=== PATIENT | male | born 1990 | race Caucasian/White ===

== ENCOUNTER 2023-05-06 08:52 | Inpatient (IN) | payer SELFPAY ==
[~2023-05-06] VITALS: Ht 177.8 cm; Wt 103.9 kg
[2023-05-06] MEDS ORDERED: LORAZEPAM 2MG/ML CPJ IV ONE (09:00)
[2023-05-06] MEDS ORDERED: LEVETIRACETAM 1000MG PREMIX 100 ML IV ONE (09:00)
[2023-05-06] MEDS ORDERED: SODIUM CHLORIDE 0.9% 1,000 ML IV ONE (09:00)
[2023-05-06] MEDS ORDERED: ONDANSETRON HCL 4MG/2ML INJ IV ONE (10:30)
[2023-05-06 11:39] LABS: HEMATOCRIT. 38.3 % (42.0-52.0); HEMOGLOBIN. 12.7 g/dL (14.0-18.0); MEAN CORPUSCULAR HEMOGLOBIN 28.9 pg (28.0-32.0); MEAN CORPUSCULAR HGB CONC 33.1 g/dL (31.0-37.0); MEAN CORPUSCULAR VOLUME 87.4 fL (80.0-94.0); MEAN PLATELET VOLUME 8.5 fl (7.4-10.4); PLATELET 173 x1000/uL (130-400); RED BLOOD CELL COUNT 4.38 mill/uL (4.7-6.1); RED CELL DISTRIBUTION WIDTH 14.2 % (11.6-14.6); WHITE BLOOD COUNT 6.3 x1000/uL (4.5-11.0)
[2023-05-06 11:40] LABS: DIFFERENTIAL COMMENT 1
[2023-05-06 12:06] LABS: PLATELET ESTIMATE NORMAL
[2023-05-06] MEDS ORDERED: ONDANSETRON HCL 4MG/2ML INJ IV PRN (12:45)
[2023-05-06] MEDS ORDERED: DEXTROSE 50% WATER 50ML SYRINGE IV PRN (12:45)
[2023-05-06] MEDS ORDERED: MAGNESIUM/ALUMINUM HYDROXIDE/SIMETHICONE 30ML UDC PO PRN (12:45)
[2023-05-06] MEDS ORDERED: GUAIFENESIN 200MG/10ML SUGAR FREE UDC PO PRN (12:45)
[2023-05-06] MEDS ORDERED: IPRATROPIUM/ALBUTEROL 0.5-3(2.5)MG/3ML NEB HHN PRN (12:45)
[2023-05-06] MEDS ORDERED: CLONIDINE 0.1MG TABLET PO PRN (12:45)
[2023-05-06] MEDS ORDERED: LORAZEPAM 0.5MG TABLET PO PRN (12:45)
[2023-05-06] MEDS ORDERED: DOCUSATE SODIUM 100MG CAPSULE PO PRN (12:45)
[2023-05-06 13:55] LABS: CHLORIDE 105 mEq/L (98-107); INDEX HEMOLYSI 1 (1-3); INDEX ICTERIC 1 (1-4); INDEX LIPEMIC 1 (1-3); POTASSIUM 3.7 mEq/L (3.5-5.1); SODIUM 136 mEq/L (136-145)
[2023-05-06 14:45] LABS: ALANINE AMINOTRANSFERASE 29 IU/L (13-61); ALBUMIN 3.7 g/dL (3.4-5.0); ASPARTATE AMINOTRANSFERASE 41 IU/L (15-37); BILIRUBIN TOTAL 0.3 mg/dL (0.1-1.0); CARBON DIOXIDE 23 mEq/L (21-32); ETHANOL BLOOD < 10 mg/dL (-10); GLUCOSE 114 mg/dL (70-105); PROTEIN TOTAL 6.8 g/dL (6.0-8.3); UREA NITROGEN BLOOD 17 mg/dL (7-21)
[2023-05-06] MEDS ORDERED: LORAZEPAM 1MG TABLET PO PRN (16:45)
[2023-05-06] MEDS: BLOOD SUGAR DIAGNOSTIC STRIP TEST SCH ×2 (17:00→20:52)
[2023-05-06] MEDS: INSULIN LISPRO 100 UNITS/ML SUBCUT SCH ×2 (18:10→21:00)
[2023-05-06] MEDS: ACETAMINOPHEN 325MG TABLET PO PRN (18:13)
[2023-05-06 18:27] LABS: TROPONIN I HIGH SENSITIVITY 241 ng/L (<78)
[2023-05-06 18:46] VITALS: BP 127/66; PULSE 53; RESP 18; TEMP 99.1
[2023-05-06] MEDS: ENOXAPARIN 30MG/0.3ML SYR SUBCUT SCH (18:53)
[2023-05-06] MEDS: DEXT 5%/0.9% NACL 1,000 ML IV SCH ×2 (19:01→23:58)
[2023-05-06 20:00] VITALS: BP 106/59; PULSE 55; RESP 20; TEMP 98.4
[2023-05-06 21:00] VITALS: BP 106/59; PULSE 55; RESP 18; TEMP 98.4
[2023-05-06] MEDS ORDERED: LEVETIRACETAM 500MG PREMIX 100 ML IV SCH ×2 (21:00→21:20)
[2023-05-06 22:00] VITALS: RESP 18
[2023-05-07] VITALS (9 sets, daily range): BP systolic 122–140; BP diastolic 71–80; PULSE 48–96; RESP 14–20; TEMP 98.2–100.6
[2023-05-07] MEDS: ENOXAPARIN 30MG/0.3ML SYR SUBCUT SCH ×2 (06:17→18:12)
[2023-05-07] MEDS: BLOOD SUGAR DIAGNOSTIC STRIP TEST SCH (06:42)
[2023-05-07 06:56] LABS: BASOPHILS % 0.2 % (0.0-2.0); HEMATOCRIT. 37.9 % (42.0-52.0); LYMPHOCYTES % 20.3 % (20.0-50.0); MEAN CORPUSCULAR HEMOGLOBIN 29.6 pg (28.0-32.0); MEAN CORPUSCULAR HGB CONC 34.3 g/dL (31.0-37.0); MEAN CORPUSCULAR VOLUME 86.4 fL (80.0-94.0); MEAN PLATELET VOLUME 9.2 fl (7.4-10.4); MONOCYTES % 11.6 % (2.0-8.0); NEUTROPHILS % 67.9 % (40.0-76.0); PLATELET 168 x1000/uL (130-400); RED BLOOD CELL COUNT 4.39 mill/uL (4.7-6.1); RED CELL DISTRIBUTION WIDTH 14.4 % (11.6-14.6); WHITE BLOOD COUNT 4.9 x1000/uL (4.5-11.0)
[2023-05-07] MEDS: INSULIN LISPRO 100 UNITS/ML SUBCUT SCH (07:58)
[2023-05-07] MEDS: DEXT 5%/0.9% NACL 1,000 ML IV SCH ×2 (08:06→16:15)
[2023-05-07] MEDS: LEVETIRACETAM 500MG TABLET PO SCH ×2 (08:54→20:40)
[2023-05-07] MEDS: FAMOTIDINE 20MG/2ML VIAL IV SCH (08:54)
[2023-05-07] MEDS: ACETAMINOPHEN 325MG TABLET PO PRN (11:47)
[2023-05-07 15:57] LABS: CHLORIDE 107 mEq/L (98-107); INDEX HEMOLYSI 1 (1-3); INDEX ICTERIC 1 (1-4); INDEX LIPEMIC 1 (1-3); POTASSIUM 3.4 mEq/L (3.5-5.1); SODIUM 137 mEq/L (136-145)
[2023-05-07 16:25] LABS: CLARITY URINE CLEAR (CLEAR); COLOR URINE YELLOW (YELLOW); GLUCOSE URINE NEGATIVE (NEGATIVE); KETONES URINE NEGATIVE (NEGATIVE); LEUKOCYTE ESTERASE URINE NEGATIVE (NEGATIVE); NITRITE URINE NEGATIVE (NEGATIVE); OCCULT BLOOD URINE NEGATIVE (NEGATIVE); PROTEIN URINE NEGATIVE (NEGATIVE); SPECIFIC GRAVITY URINE 1.007 (1.005-1.030); UROBILINOGEN URINE 0.2 E.U./dL (0.2-1.0)
[2023-05-07 17:00] LABS: *AMPHETAMINES SCREEN URINE NEGATIVE (NEGATIVE); *BARBITURATES SCREEN URINE NEGATIVE (NEGATIVE); *BENZODIAZEPINES SCREEN URINE NEGATIVE (NEGATIVE); *COCAINE SCREEN URINE NEGATIVE (NEGATIVE); CANNABINOID URINE SCREEN PRESUMTIVE POSITIVE (NEGATIVE); ECSTASY MDMA SCREEN URINE NEGATIVE (NEGATIVE); METHADONE URINE SCREEN NEGATIVE (NEGATIVE); OPIATES URINE SCREEN NEGATIVE (NEGATIVE); PHENCYCLIDINE URINE SCREEN NEGATIVE (NEGATIVE)
[2023-05-07 17:13] LABS: ALANINE AMINOTRANSFERASE 23 IU/L (13-61); ALBUMIN 3.3 g/dL (3.4-5.0); ASPARTATE AMINOTRANSFERASE 31 IU/L (15-37); BILIRUBIN TOTAL 0.3 mg/dL (0.1-1.0); CARBON DIOXIDE 23 mEq/L (21-32); CHOLESTEROL 150 mg/dL (<200); CREATININE 0.9 mg/dL (0.6-1.3); GLUCOSE 104 mg/dL (70-105); HDL CHOLESTEROL 48 mg/dL (40-59); LDL CHOLESTEROL 93 mg/dL (5-100); PROTEIN TOTAL 6.4 g/dL (6.0-8.3); T4 FREE 0.85 ng/dL (0.76-1.46); THYROID STIMULATING HORMONE 0.89 uIU/mL (0.36-3.74); TRIGLYCERIDE 130 mg/dL (0-150); UREA NITROGEN BLOOD 10 mg/dL (7-21)
[2023-05-07 17:47] LABS: INDEX HEMOLYSI 1 (1-3)
[2023-05-07 17:57] LABS: CREATINE KINASE 165 IU/L (39-308); CREATINE KINASE MB FRACTION < 1.0 ng/mL (0.5-3.6)
[2023-05-07 18:19] LABS: TROPONIN I HIGH SENSITIVITY 216 ng/L (<78)
[2023-05-07] MEDS ORDERED: POTASSIUM CHLORIDE 20MEQ TABLET SR PO NR (19:00)
[2023-05-07 20:48] LABS: PHOSPHORUS 2.2 mg/dL (2.5-4.9)
[2023-05-07] MEDS ORDERED: POTASSIUM PHOS,M-BASIC-D-BASIC 15 MMOL in DEXT 5% WATER 245 ML IV NR (23:00)
[2023-05-08] VITALS: BP 129/63; PULSE 52; RESP 20; TEMP 100.7
[2023-05-08] MEDS: DEXT 5%/0.9% NACL 1,000 ML IV SCH ×2 (00:41→08:17)
[2023-05-08 01:22] LABS: INDEX HEMOLYSI 1 (1-3)
[2023-05-08 01:30] LABS: CREATINE KINASE 145 IU/L (39-308); CREATINE KINASE MB FRACTION < 1.0 ng/mL (0.5-3.6)
[2023-05-08 01:47] LABS: TROPONIN I HIGH SENSITIVITY 231 ng/L (<78)
[2023-05-08 04:00] VITALS: BP 144/63; PULSE 55; RESP 20; TEMP 99
[2023-05-08] MEDS: ENOXAPARIN 30MG/0.3ML SYR SUBCUT SCH (05:37)
[2023-05-08 07:13] LABS: INDEX HEMOLYSI 1 (1-3); POTASSIUM 3.3 mEq/L (3.5-5.1)
[2023-05-08 07:26] LABS: CREATINE KINASE 138 IU/L (39-308); CREATINE KINASE MB FRACTION < 1.0 ng/mL (0.5-3.6)
[2023-05-08 08:00] VITALS: BP 126/55; PULSE 52; RESP 16; TEMP 97.9
[2023-05-08] MEDS: FAMOTIDINE 20MG/2ML VIAL IV SCH (08:16)
[2023-05-08] MEDS: LEVETIRACETAM 500MG TABLET PO SCH (08:16)
[2023-05-08] MEDS ORDERED: POTASSIUM CHLORIDE 20MEQ TABLET SR PO NR (09:00)
[2023-05-08 09:10] LABS: TROPONIN I HIGH SENSITIVITY 218 ng/L (<78)
[2023-05-08 10:18] LABS: BASOPHILS % 0.3 % (0.0-2.0); EOSINOPHILS % 0.4 % (0.0-5.0); HEMATOCRIT. 40.8 % (42.0-52.0); HEMOGLOBIN. 13.8 g/dL (14.0-18.0); LYMPHOCYTES % 32.1 % (20.0-50.0); MEAN CORPUSCULAR HEMOGLOBIN 29.5 pg (28.0-32.0); MEAN CORPUSCULAR HGB CONC 33.9 g/dL (31.0-37.0); MEAN CORPUSCULAR VOLUME 87.1 fL (80.0-94.0); MEAN PLATELET VOLUME 9.1 fl (7.4-10.4); MONOCYTES % 11.1 % (2.0-8.0); NEUTROPHILS % 56.1 % (40.0-76.0); PLATELET 149 x1000/uL (130-400); RED BLOOD CELL COUNT 4.68 mill/uL (4.7-6.1); RED CELL DISTRIBUTION WIDTH 14.7 % (11.6-14.6); WHITE BLOOD COUNT 4.8 x1000/uL (4.5-11.0)
[2023-05-08 10:21] LABS: CHLORIDE 109 mEq/L (98-107); INDEX HEMOLYSI 1 (1-3); INDEX ICTERIC 1 (1-4); INDEX LIPEMIC 1 (1-3); POTASSIUM 3.3 mEq/L (3.5-5.1); SODIUM 139 mEq/L (136-145)
[2023-05-08 10:30] LABS: ALANINE AMINOTRANSFERASE 27 IU/L (13-61); ALBUMIN 3.2 g/dL (3.4-5.0); ASPARTATE AMINOTRANSFERASE 31 IU/L (15-37); BILIRUBIN TOTAL 0.4 mg/dL (0.1-1.0); CALCIUM 8.3 mg/dL (8.5-10.1); CARBON DIOXIDE 25 mEq/L (21-32); CREATININE 0.8 mg/dL (0.6-1.3); GLUCOSE 108 mg/dL (70-105); PHOSPHORUS 3.5 mg/dL (2.5-4.9); PROTEIN TOTAL 6.7 g/dL (6.0-8.3); UREA NITROGEN BLOOD 7 mg/dL (7-21)
[2023-05-08] MEDS ORDERED: KEPP500 PO (11:00)
[2023-05-08] MEDS ORDERED: MAGNESIUM OXIDE 400MG TABLET PO NR (11:15)
[2023-05-08 11:46] VITALS: BP 116/58; PULSE 58; TEMP 97.8; O2SAT 99
[2023-05-08 12:00] VITALS: BP 118/67; PULSE 50; RESP 16; TEMP 97.9
[2023-05-08] MEDS ORDERED: MAGNESIUM 2 G PREMIX 50 ML IV NR (12:30)
== END 2023-05-08 14:30 | disposition home or self-care (01) | DRG 53 ==
LOC: ER 09:07 → 7WST 12:09 → EDBEDREQ 12:11 → EDBEDREQTM 12:11 → 7WST 18:14
PROVIDERS: ADMIT Internal Medicine; ATTEND Internal Medicine
PROC: 4A00X4Z Measurement of Central Nervous Electrical Activity, External Approach (ICD-10-PCS; principal; 2023-05-07)
DX: G40.909 Epilepsy, unspecified, not intractable, without status epilepticus (principal); I21.A1 Myocardial infarction type 2; D64.9 Anemia, unspecified; D72.825 Bandemia; F12.90 Cannabis use, unspecified, uncomplicated
CPT/HCPCS: 36415; 70551; 80053; 80061; 80305; 80320; 81003; 82550; 82553; 82962; 83036; 83735; 84100; 84132; 84439; 84443; 84484; 85025; 93005; 93306; 95816; 99285; J1650; J1953; J2060; J2405; J3475; J3490; J7030; J7060; G0480